=== PATIENT | female | born 1995 | race Caucasian/White ===

== ENCOUNTER → 2019-06-05 | Outpatient (CLI) | payer SELFPAY ==
--- NOTE | 2019-06-05 16:12 | RADIOLOGY REPORT (SQ) ---
EXAM DESCRIPTION: U/S [id number] TRNABD 1GES W/ODOP COMPLETED DATE/TIME: 06/05/2019 3:26 pm REASON FOR STUDY: ENCOUNTER FOR SUPERVISION OF OTHER NORMAL , FIRST TRIMESTER Z34.81 ENCOU NTER FOR SUPRVSN OF NORMAL , FIRST TRIM COMPARISON: None. TECHNIQUE: Transabdominal static and realtime grayscale images acquired of the pelvis. Additional se lected spectral and color Doppler images recorded. All images stored on PACs. bHCG: Not applicable. CLINICAL DATES: 11 week 5 day. LIMITATIONS: None. FINDINGS: FETUS: Single Living intrauterine . ULTRASOUND EGA: 12 week 2 day. ULTRASOUND TAJ: 12/16/2019. EFW: Not applicable less than 20 weeks. CRL: 5.81 cm. FHR: 160 beats per minute. SURVEY: No visualized anomalies. AMNIOTIC FLUID: Adequate amount. PLACENTA: Not yet developed due to early gestation. SUBCHORIONIC BLEED: No. SIZE OF BLEED: Not applicable. UTERUS: No masses. No anomalies. CERVICAL LENGTH: 3.3 cm. Closed. RIGHT ADNEXA: Ovary not identified due to poor acoustical window. No adnexal free fluid. No adnexal masses. LEFT ADNEXA: Normal ovary with normal vascular flow. No adnexal free fluid. 1.9 cm cyst. FREE FLUID: None. OTHER: No other significant finding. IMPRESSION: LIVING INTRAUTERINE . EGA 12 WEEK 2 DAY. Trimester of : First trimester - 0 to 13 weeks. TECHNICAL DOCUMENTATION: JOB ID: [id number] [employer]- All Rights Reserved rev Reading location - IP/workstation name: [email or web address]
== END ==
LOC: SP 14:44
PROVIDERS: ATTEND Midwife
DX: Z34.81 Encounter for supervision of other normal pregnancy, first trimester (principal)
CPT/HCPCS: 76801

== ENCOUNTER 2019-12-16 12:30 | Inpatient (IN) | payer MEDICAID ==
[2019-12-16] MEDS ORDERED: RINGERS SOLUTION,LACTATED 1,000 ML IV ONE (12:57)
[2019-12-16 13:00] LABS: APPEARANCE,URINE SLIGHTLY-CLOUDY; BILIRUBIN,URINE NEGATIVE (NEGATIVE); COLOR,URINE YELLOW; GLUCOSE, URINE NEGATIVE (NEGATIVE); KETONES,URINE NEGATIVE (NEGATIVE); LEUKOCYTE ESTERASE,URINE NEGATIVE (NEGATIVE); NITRITE,URINE NEGATIVE (NEGATIVE); PROTEIN,URINE NEGATIVE (NEGATIVE); URINE SPECIFIC GRAVITY 1.008; UROBILINOGEN,URINE NEGATIVE mg/dL (<2.0)
[2019-12-16] MEDS ORDERED: LIDOCAINE 1% INJ-PF (10 MG/ML) 30 ML SDV ONE (13:06)
[2019-12-16] MEDS ORDERED: MISOPROSTOL 0.2 MG TABLET ONE (13:06)
[2019-12-16] MEDS ORDERED: OXYTOCIN/NORMAL SALINE 20 UNIT/1,000 ML RTUINJ ONE (13:06)
[2019-12-16 13:27] LABS: URINE AMPHETAMINES SCREEN NEGATIVE; URINE BARBITURATES SCREEN NEGATIVE; URINE BENZODIAZEPINES SCREEN NEGATIVE; URINE COCAINE SCREEN NEGATIVE; URINE MARIJUANA (THC) SCREEN NEGATIVE; URINE METHADONE SCREEN NEGATIVE; URINE PHENCYCLIDINE SCREEN NEGATIVE
[2019-12-16 14:30] LABS: ABSOLUTE LYMPHOCYTES (AUTO) 1.2 10^3/uL (0.5-4.7); ABSOLUTE MONOCYTES (AUTO) 0.7 10^3/uL (0.1-1.4); BASOPHILS % (AUTO) 0.2 % (0-2); EOSINOPHILS % (AUTO) 0.2 % (0-6); HEMATOCRIT 32.9 % (36.0-47.0); HEMOGLOBIN 11.2 g/dL (12.0-15.5); LYMPHOCYTES % (AUTO) 11.3 % (13-45); MEAN CORPUSCULAR HEMOGLOBIN 27.2 pg (27.0-33.4); MEAN CORPUSCULAR HGB CONC 34.1 g/dL (32.0-36.0); MEAN CORPUSCULAR VOLUME 80 fl (80-97); MONOCYTES % (AUTO) 6.8 % (3-13); PLATELET COUNT 186 10^3/uL (150-450); RED BLOOD COUNT 4.13 10^6/uL (3.72-5.28); RED CELL DISTRIBUTION WIDTH 13.8 % (11.5-14.0); SEGMENTED NEUTROPHILS % (AUTO) 81.5 % (42-78); TOTAL CELLS COUNTED % (AUTO) 100 %
--- NOTE | 2019-12-16 15:10 | Admission Physical ---
Datetime Report Generated by CPN: 12/16/2019 15:10 CURRENT ADMISSION Chief Complaint: Uterine Contractions Indication for Induction: Not Applicable Admit Impression : Term, Intrauterine ; Active Labor Admit Plan: Admit to Unit ALLERGIES Medication Allergies: No Latex: No Latex Allergies Food Allergies: none Environmental Allergies: none OBSTETRICAL HISTORY EDC: 12/20/2019 00:00 : 2 Para: 1 Term: 1 : 0 SAB: 0 IAB: 0 Ectopic: 0 Livin Cesareans: 0 VBACs: 0 Multiple Births: 0 Gestational Diabetes: No Rh Sensitization: No Incompetent Cervix: No GEORGE: No Infertility: No ART Treatment: No Uterine Anomaly: No IUGR: No Hx Previous C/S: No Macrosomia: No Hx Loss/Stillborn: No PIH: No Hx : No Placenta Previa/Abruption: No Depression/PP Depression: No PTL/PROM: No Post Hemorrhage: Yes Current Procedures: Ultrasound Obstetrical History Comments: 40 wks, 7lbs 6lbs vaginal female PPH per pt G2- Current SEE RECORDS Alcohol: No Marijuana : No Cocaine: No Other Illicit Drugs: No Cigarettes: Former Smoker. [id number] MEDICAL HISTORY Diabetes: No Blood Transfusion: No Pulmonary Disease (Asthma, TB): No Breast Disease: No Hypertension: No Clipman Surgery: No Heart Disease: No Hosp/Surgery: Yes Autoimmune Disorder: No Anesthetic Complications: No Kidney Disease: No Abnormal Pap Smear: No Neuro/Epilepsy: No Psychiatric Disorders: No Other Medical Diseases: No Hepatitis/Liver Disease: No Significant Family History: No Varicosities/Phlebitis: No Trauma/Violence : No Thyroid Dysfunction: No Medical History Comments: childbirth, INFECTIOUS HISTORY Gonorrhea: No Genital Herpes: No Chlamydia: No Tuberculosis: No Syphilis: No Hepatitis: No HIV/AIDS Exposure: No Rash or Viral Illness: No HPV: No PHYSICAL EXAM General: Normal HEENT: Normal Neurologic: Normal Thyroid: Normal Heart: Normal Lungs: Normal Breast: Deferred Back: Normal Abdomen: Normal Genitourinary Exam: Normal Extremities: Normal DTRs: Normal Pelvic Type: Adequate Vital Signs: Reviewed VAGINAL EXAM Dilatation: 7 Effacement: 90 Station: -1 MEMBRANES Pooling: Positive Membranes: Ruptured FETUS A EGA: 39.3 Monitoring: External US FHR- Baseline: 120 Variability: Moderate 6-25bpm Decelerations: None FHR Category: Category I Presentation: Vertex Admit Comment: admit for labor PLANS FOR LABOR AND DELIVERY Labor and Delivery: None Pain Management: None Feeding Preference: Breast Benefit of Breast Feed Discussed: Yes Circumcision: Yes INFORMED CONSENT Signature: with User ID: [email or web address]
[2019-12-16] MEDS ORDERED: FENTANYL CITRATE INJ/PF 100 MCG/2 ML AMPUL ONE (15:52)
--- NOTE | 2019-12-16 16:38 | PDOC DISCHARGE SUMMARY ---
Impression - Admit/DC Date/PCP Admission Date/Primary Care Provider: 12/16/19 12:52 NATALIE DON MD Discharge Date: 12/16/19 - Discharge Diagnosis (1) Vaginal delivery Is this a current diagnosis for this admission?: Yes - Assessment Summary: The pt presented in labor and delivered vaginally. The male baby has bladder extrophy and is being shipped to tertiary care. She would like to go also. She is stable and will be sent with the baby. - Additional Information Resuscitation Status: Full Code Discharge Diet: As Tolerated, Regular Discharge Activity: Pelvic Rest, Slowly Increase Activity Referrals: NATALIE DON MD [Primary Care Provider] - Home Medications: Pnv No.95/Ferrous Fum/Folic AC [ Multivitamin Tablet] 1 tab PO DAILY 12/16/19 Additional Information: Followup in the office in a month. Results Laboratory Results: WBC 11.0 10^3/uL (4.0-10.5) H 12/16/19 13:21 RBC 4.13 10^6/uL (3.72-5.28) 12/16/19 13:21 Hgb 11.2 g/dL (12.0-15.5) L 12/16/19 13:21 Hct 32.9 % (36.0-47.0) L 12/16/19 13:21 MCV 80 fl (80-97) 12/16/19 13:21 MCH 27.2 pg (27.0-33.4) 12/16/19 13:21 MCHC 34.1 g/dL (32.0-36.0) 12/16/19 13:21 RDW 13.8 % (11.5-14.0) 12/16/19 13:21 Plt Count 186 10^3/uL (150-450) 12/16/19 13:21 Lymph % (Auto) 11.3 % (13-45) L 12/16/19 13:21 [place] % (Auto) 6.8 % (3-13) 12/16/19 13:21 Eos % (Auto) 0.2 % (0-6) 12/16/19 13:21 Baso % (Auto) 0.2 % (0-2) 12/16/19 13:21 Absolute Neuts (auto) 9.0 10^3/uL (1.7-8.2) H 12/16/19 13:21 Absolute Lymphs (auto) 1.2 10^3/uL (0.5-4.7) 12/16/19 13:21 Absolute Monos (auto) 0.7 10^3/uL (0.1-1.4) 12/16/19 13:21 Absolute Eos (auto) 0.0 10^3/uL (0.0-0.6) 12/16/19 13:21 Absolute Basos (auto) 0.0 10^3/uL (0.0-0.2) 12/16/19 13:21 Seg Neutrophils % 81.5 % (42-78) H 12/16/19 13:21 Urine Color YELLOW 12/16/19 12:40 Urine Appearance SLIGHTLY-CLOUDY 12/16/19 12:40 Urine pH 8.0 (5.0-9.0) 12/16/19 12:40 Ur Specific [place] 1.008 12/16/19 12:40 Urine Protein NEGATIVE mg/dL (NEGATIVE) 12/16/19 12:40 Urine Glucose (UA) NEGATIVE mg/dL (NEGATIVE) 12/16/19 12:40 Urine Ketones NEGATIVE mg/dL (NEGATIVE) 12/16/19 12:40 Urine Blood NEGATIVE (NEGATIVE) 12/16/19 12:40 Urine Nitrite NEGATIVE (NEGATIVE) 12/16/19 12:40 Urine Bilirubin NEGATIVE (NEGATIVE) 12/16/19 12:40 Urine Urobilinogen NEGATIVE mg/dL (<2.0) 12/16/19 12:40 Ur Leukocyte Esterase NEGATIVE (NEGATIVE) 12/16/19 12:40 Urine Ascorbic Acid NEGATIVE (NEGATIVE) 12/16/19 12:40 Urine Opiates Screen NEGATIVE 12/16/19 12:40 Urine Methadone Screen NEGATIVE 12/16/19 12:40 Ur Barbiturates Screen NEGATIVE 12/16/19 12:40 Ur Phencyclidine Scrn NEGATIVE 12/16/19 12:40 Ur Amphetamines Screen NEGATIVE 12/16/19 12:40 U Benzodiazepines Scrn NEGATIVE 12/16/19 12:40 Urine Cocaine Screen NEGATIVE 12/16/19 12:40 U Marijuana (THC) Screen NEGATIVE 12/16/19 12:40 Blood Type O POSITIVE 12/16/19 13:21 Antibody Screen NEGATIVE 12/16/19 13:21
--- NOTE | 2019-12-16 17:44 | Delivery Summary ---
Del Sum A-C Datetime Report Generated by CPN: 12/16/2019 17:44 DELIVERY PERSONNEL DELIVERY PERSONNEL: [id number] Delivery Doctor:: Rizwan Haque MD Labor and Delivery Nurse:: Aicha Cano, RN Nursery Nurse:: Liyah Walker, RN Nursery Nurse:: Yen Yu, MARLEEN [employer]/PALLIATIVE MEDICINE PHYSICIAN: Andra Caldwell, ST [employer]/PALLIATIVE MEDICINE PHYSICIAN: Siria Jackson, ST Additional Personnel: : Milady Lazaro, RN MATERNAL INFORMATION Delivery Anesthesia: None Medications After Delivery: Pitocin Drip 20 Units/1000ml NSS Delivery QBL: 100 Maternal Complications: None LABOR SUMMARY EDC: 12/20/2019 00:00 No. Babies in Womb: 1 Attempted: No Labor Anesthesia: None LABOR INFORMATION Reason for Induction: Not Applicable Onset of Labor: 12/16/2019 06:00 Complete Dilatation: 12/16/2019 15:34 Oxytocin: N/A Group B Beta Strep: negative Reason Steroids Not Administered: Not Applicable MEMBRANES Membranes Rupture Method: Artificial Rupture of Membranes: 12/16/2019 15:02 Length of Rupture (hr): 0.57 Amniotic Fluid Color: Clear Amniotic Fluid Amount: Small Amniotic Fluid Odor: None STAGES OF LABOR Stage 1 hr: 9 Stage 1 min: 34 Stage 2 hr: 0 Stage 2 min: 2 Stage 3 hr: 0 Stage 3 min: 6 Total Time in Labor hr: 9 Total Time in Labor min: 42 VAGINAL DELIVERY Episiotomy: None Laceration #1: None Laceration Extension #1: N/A Laceration #2: None Laceration Extension #2: N/A Laceration #3: None Laceration Extension #3: N/A Laceration Repair: Not Applicable Sponge Count Correct: N/A Sharps Count Correct: N/A CSECTION DELIVERY Primary Indication: N/A Secondary Indication: N/A CSection Incidence: N/A Labor: N/A Elective: N/A CSection Incision: N/A BABY A INFORMATION Infant Delivery Date/Time: 12/16/2019 15:36 Method of Delivery: Vaginal Nurse Controlled Delivery: No Born in Route : No : N/A Forceps: N/A Vacuum Extraction: N/A Shoulder Dystocia : No PRESENTATION/POSITION BABY A Presentation: Cephalic Cephalic Presentation: Vertex Vertex Position: Left Occipital Anterior Breech Presentation: N/A PLACENTA INFORMATION BABY A Placenta Delivery Time : 12/16/2019 15:42 Placenta Method of Delivery: Spontaneous Placenta Status: Delivered SCORES BABY A Heart Rate 1 min: >100 bpm Resp Effort 1 min: Good Cry Reflex Irritability 1 min: Cough or Sneeze or Pulls Away Muscle Tone 1 min: Active Motion Color 1 min: Body [place], Extremities Blue Resuscitation Effort 1 min: Tactile Stimulation SCORE 1 MIN: 9 Heart Rate 5 min: >100 bpm Resp Effort 5 min: Good Cry Reflex Irritability 5 min: Cough or Sneeze or Pulls Away Muscle Tone 5 min: Active Motion Color 5 min: Body [place], Extremities Blue Resuscitation Effort 5 min: Tactile Stimulation SCORE 5 MIN: 9 INFORMATION BABY A Gestational Age at Delivery: 39.3 Gestational Status: Full Term- 39- 40.6 Weeks Outcome : Liveborn Condition : Stable Sex: Male IDENTIFICATION BABY A Verification Date/Time: 12/16/2019 16:51 ID Band Number: [id number] Mother's Name Verified: Yes RN Verifying : C Rachael,RN and TMartin,RN WEIGHT/LENGTH BABY A Infant Birthweight (gm): 3232 Infant Weight (lb): 7 Infant Weight (oz): 2 Infant Length (in): 20.00 Length (cm): 50.80 CORD INFORMATION BABY A No. Cord Vessels: 3 Nuchal Cord : N/A Cord Blood Taken: Yes-For Eval (Mom's Blood Type - or O+) Infant Suction: None ASSESSMENT BABY A Complications: Other Physical Findings at Delivery: Other Physical Findings- Other: extrophy of the bladder Respirations: Appears Normal Sand Buffer/ALS Called : Yes Infant Care By: Bhumika Lazaro RN Transferred To: NICU BABY B INFORMATION : N/A SIGNATURES Signature: with User ID: [email or web address]
[2019-12-16] MEDS ORDERED: IBUPROFEN 800 MG TABLET ONE (20:10)
[2019-12-16] MEDS ORDERED: BENZOCAINE/MENTHOL AEROSOL SPRAY 56 ML TOP PRN (20:12)
[2019-12-16] MEDS ORDERED: ACETAMINOPHEN WITH CODEINE #3 TABLET PO PRN ×2 (20:12)
[2019-12-16] MEDS ORDERED: MEASLES,MUMPS&RUBELLA VACC/PF 0.5 ML VIAL SUBCUT PRN (20:12)
[2019-12-16] MEDS ORDERED: DIBUCAINE 1% OINTMENT 28 GM TP PRN (20:12)
[2019-12-16] MEDS ORDERED: ZOLPIDEM TARTRATE 5 MG TABLET PO PRN (20:12)
[2019-12-16] MEDS ORDERED: DIPH/PERTUSS(ACELL)/TETANUS VAC/PF 0.5 ML SYR (>=10YO) IM PRN (20:12)
[2019-12-16] MEDS ORDERED: OXYTOCIN/NORMAL SALINE 20 UNIT/1,000 ML RTUINJ IV PRN (20:12)
[2019-12-16] MEDS ORDERED: IBUPROFEN 800 MG TABLET PO SCH (22:00)
[2019-12-17] MEDS ORDERED: SENNOSIDES/DOCUSATE 8.6-50 MG 1 EACH TABLET PO SCH (10:00)
[2019-12-17] MEDS ORDERED: PRENATAL VITAMIN W DHA CAPSULE PO SCH (10:00)
[2019-12-17] MEDS ORDERED: FERROUS SULFATE 325 MG TABLET PO SCH (10:00)
[2019-12-17] MEDS ORDERED: DOCUSATE SODIUM 100 MG CAPSULE PO SCH (10:00)
== END 2019-12-17 00:31 | disposition home or self-care (01) | DRG 807 ==
LOC: LC 12:30 → LR 12:52
PROVIDERS: ADMIT Obstetrics & Gynecology; ATTEND Obstetrics & Gynecology
PROC: 10E0XZZ Delivery of Products of Conception, External Approach (ICD-10-PCS; principal; 2019-12-16)
DX: O80 Encounter for full-term uncomplicated delivery (principal); Z37.0 Single live birth; Z3A.39 39 weeks gestation of pregnancy; Z87.891 Personal history of nicotine dependence
CPT/HCPCS: 36415; 59414; 80307; 81005; 85025; 86592; 86850; 86900; 86901; J2590; J3010; J3490